=== PATIENT | female | born 1995 | race Two or more races ===

== ENCOUNTER 2020-02-22 11:48 | Emergency (ER) | payer MEDICAID ==
[~2020-02-22] VITALS: Ht 160 cm; Wt 52.0 kg
[2020-02-22 11:51] VITALS: BP 106/76
[2020-02-22] MEDS ORDERED: ACETAMINOPHEN 325MG TABLET PO ONE (12:00)
[2020-02-22 13:12] LABS: CLARITY URINE CLEAR (CLEAR); COLOR URINE YELLOW (YELLOW); KETONES URINE NEGATIVE (NEGATIVE); LEUKOCYTE ESTERASE URINE NEGATIVE (NEGATIVE); NITRITE URINE NEGATIVE (NEGATIVE); OCCULT BLOOD URINE NEGATIVE (NEGATIVE); PH URINE 6.5 (4.5-8.0); PROTEIN URINE TRACE (NEGATIVE); SPECIFIC GRAVITY URINE 1.023 (1.005-1.030); UROBILINOGEN URINE 0.2 E.U./dL (0.2-1.0)
== END 2020-02-22 15:20 | disposition home or self-care (01) ==
LOC: ER 11:48
DX: R10.2 Pelvic and perineal pain (principal); M54.5 Low back pain; Z32.02 Encounter for pregnancy test, result negative
CPT/HCPCS: 76705; 76830; 76856; 81003; 81025; 99285

== ENCOUNTER 2022-04-08 08:39 | Emergency (ER) | payer MEDICAID ==
[~2022-04-08] VITALS: Ht 157.5 cm; Wt 57.0 kg
[~2022-04-08 08:39] MED LIST: ACET-2708 MT; D-ME473S50 PO
[2022-04-08 08:43] VITALS: BP 105/67
[2022-04-08] MEDS ORDERED: ONDANSETRON 4MG ODT PO ONE (09:30)
[2022-04-08 10:24] LABS: EOSINOPHILS % 1.5 % (0.0-5.0); HEMATOCRIT. 39.7 % (36.0-48.0); HEMOGLOBIN. 13.1 g/dL (12.0-16.0); LYMPHOCYTES % 35.2 % (20.0-50.0); MEAN CORPUSCULAR HEMOGLOBIN 26.8 pg (28.0-32.0); MEAN CORPUSCULAR VOLUME 81.5 fL (81.0-99.0); MONOCYTES % 8.7 % (2.0-8.0); NEUTROPHILS % 53.6 % (40.0-76.0); PLATELET 394 x1000/uL (130-400); RED BLOOD CELL COUNT 4.87 mill/uL (4.2-5.4); RED CELL DISTRIBUTION WIDTH 12.7 % (11.6-14.6)
[2022-04-08 10:25] LABS: CHLORIDE 108 mEq/L (98-107)
[2022-04-08 10:34] LABS: B-HCG QUANTITATIVE 653 mIU/mL (<3)
[2022-04-08] MEDS ORDERED: PYRI-7 PO (11:25)
== END 2022-04-08 11:58 | disposition home or self-care (01) ==
LOC: ER 08:39
DX: Z33.1 Pregnant state, incidental (principal)
CPT/HCPCS: 36415; 80053; 84702; 85025; 99283; Q0162

== ENCOUNTER 2022-04-24 11:12 | Emergency (ER) | payer MEDICAID ==
[~2022-04-24] VITALS: Ht 165.1 cm; Wt 60.0 kg
[~2022-04-24 11:12] MED LIST changes: +PYRI-7 PO
[2022-04-24 11:17] VITALS: BP 113/75
[2022-04-24 11:52] LABS: CLARITY URINE CLEAR (CLEAR); COLOR URINE YELLOW (YELLOW); KETONES URINE 1+ (NEGATIVE); LEUKOCYTE ESTERASE URINE TRACE (NEGATIVE); NITRITE URINE NEGATIVE (NEGATIVE); OCCULT BLOOD URINE NEGATIVE (NEGATIVE); PROTEIN URINE NEGATIVE (NEGATIVE); SPECIFIC GRAVITY URINE 1.006 (1.005-1.030); UROBILINOGEN URINE 0.2 E.U./dL (0.2-1.0)
[2022-04-24 12:17] LABS: CHLORIDE 102 mEq/L (98-107)
[2022-04-24 12:18] LABS: BASOPHILS % 0.9 % (0.0-2.0); EOSINOPHILS % 0.3 % (0.0-5.0); HEMATOCRIT. 39.1 % (36.0-48.0); LYMPHOCYTES % 23.9 % (20.0-50.0); MEAN CORPUSCULAR HEMOGLOBIN 27.1 pg (28.0-32.0); MEAN CORPUSCULAR VOLUME 81.7 fL (81.0-99.0); MEAN PLATELET VOLUME 7.1 fl (7.4-10.4); MONOCYTES % 8.2 % (2.0-8.0); NEUTROPHILS % 66.7 % (40.0-76.0); PLATELET 360 x1000/uL (130-400); RED BLOOD CELL COUNT 4.79 mill/uL (4.2-5.4); RED CELL DISTRIBUTION WIDTH 13.2 % (11.6-14.6)
[2022-04-24 12:40] LABS: B-HCG QUANTITATIVE 63509 mIU/mL (<3)
[2022-04-24] MEDS ORDERED: NITR-87 MT (13:49)
== END 2022-04-24 14:06 | disposition home or self-care (01) ==
LOC: ER 11:19
DX: O26.891 Other specified pregnancy related conditions, first trimester (principal); O20.0 Threatened abortion; O23.41 Unspecified infection of urinary tract in pregnancy, first trimester; N39.0 Urinary tract infection, site not specified; Z3A.01 Less than 8 weeks gestation of pregnancy
CPT/HCPCS: 36415; 76801; 80053; 81003; 81025; 84702; 85025; 86850; 86900; 99284

== ENCOUNTER 2023-08-12 16:49 | Emergency (ER) | payer MEDICAID, OTHER ==
[~2023-08-12] VITALS: Ht 160 cm; Wt 61.0 kg
[~2023-08-12 16:49] MED LIST changes: +NITR-87 MT
[2023-08-12 17:05] VITALS: BP 111/65; TEMP 98.5; O2SAT 98
[2023-08-12 17:49] LABS: CLARITY URINE CLOUDY (CLEAR); COLOR URINE RED (YELLOW); GLUCOSE URINE NEGATIVE (NEGATIVE); KETONES URINE NEGATIVE (NEGATIVE); LEUKOCYTE ESTERASE URINE 2+ (NEGATIVE); NITRITE URINE POSITIVE (NEGATIVE); OCCULT BLOOD URINE 2+ (NEGATIVE); PROTEIN URINE 3+ (NEGATIVE); SPECIFIC GRAVITY URINE 1.034 (1.005-1.030); UROBILINOGEN URINE 0.2 E.U./dL (0.2-1.0)
[2023-08-12 17:58] LABS: BASOPHILS % 0.8 % (0.0-2.0); EOSINOPHILS % 1.7 % (0.0-5.0); HEMATOCRIT. 37.4 % (36.0-48.0); HEMOGLOBIN. 12.5 g/dL (12.0-16.0); LYMPHOCYTES % 32.5 % (20.0-50.0); MEAN CORPUSCULAR HGB CONC 33.4 g/dL (31.0-37.0); MEAN CORPUSCULAR VOLUME 80.9 fL (81.0-99.0); MONOCYTES % 9.3 % (2.0-8.0); NEUTROPHILS % 55.7 % (40.0-76.0); PLATELET 343 x1000/uL (130-400); RED BLOOD CELL COUNT 4.63 mill/uL (4.2-5.4); RED CELL DISTRIBUTION WIDTH 13.7 % (11.6-14.6); WHITE BLOOD COUNT 8.7 x1000/uL (4.5-11.0)
[2023-08-12 18:02] LABS: CHLORIDE 104 mEq/L (98-107); POTASSIUM 3.3 mEq/L (3.5-5.1); SODIUM 137 mEq/L (136-145)
[2023-08-12 18:03] LABS: CALCIUM 9.2 mg/dL (8.7-10.4); CARBON DIOXIDE 26 mEq/L (21-32)
[2023-08-12 18:08] LABS: CREATININE 0.8 mg/dL (0.6-1.0); GLUCOSE 91 mg/dL (70-105); UREA NITROGEN BLOOD 9 mg/dL (9-23)
[2023-08-12 18:09] LABS: ALANINE AMINOTRANSFERASE < 7 IU/L (10-49)
[2023-08-12 18:10] LABS: ALBUMIN 4.6 g/dL (3.2-4.8); ASPARTATE AMINOTRANSFERASE 16 IU/L (<34); BILIRUBIN TOTAL 0.5 mg/dL (0.1-1.0); PROTEIN TOTAL 7.3 g/dL (6.0-8.3)
[2023-08-12 18:17] LABS: WBC URINE 0-2 /hpf (0-2)
[2023-08-12 18:18] LABS: BACTERIA URINE TRACE; SQUAMOUS EPITHELIAL CELL URINE FEW /lpf (RARE/1+)
[2023-08-12 18:23] LABS: B-HCG QUANTITATIVE 3709 mIU/mL (<3)
[2023-08-12] MEDS ORDERED: CEFP100T8 MT (20:15)
[2023-08-12 20:18] VITALS: PULSE 88; RESP 18
== END 2023-08-12 20:38 | disposition home or self-care (01) ==
LOC: ER 16:49
DX: O03.9 Complete or unspecified spontaneous abortion without complication (principal); O23.31 Infections of other parts of urinary tract in pregnancy, first trimester; Z3A.01 Less than 8 weeks gestation of pregnancy; Z79.899 Other long term (current) drug therapy
CPT/HCPCS: 36415; 76801; 80053; 81003; 84702; 85025; 86850; 86900; 99284